=== PATIENT | male | born 1960 | race Two or more races ===

== ENCOUNTER 2018-04-10 11:22 | Emergency (ER) | payer OTHER ==
[2018-04-10 11:31] VITALS: BP 160/95
--- NOTE | 2018-04-10 12:28 | EDPHY ---
H & P Stated Complaint: sent from left finger lac Time Seen by Provider: 04/10/18 12:28 HPI/ROS: HPI: This is a 57-year-old male who presents with Chief Complaint: sent from left finger lac Location: Left index finger Quality: Laceration Duration: 1-3 hours prior to arrival Signs and Symptoms: No bleeding, no radiation, no numbness, no weakness, no tingling, no incontinence, + decreased range of motion, no swelling, no pain, no fever Timing: Acute Severity: Moderate to severe Context: Patient is right-hand dominant, used his knife to cut through the dry while at work as he works as a construction electrician and accidentally sliced the volar aspect at the PIP joint of his left index finger. He reports that he immediately felt pain and it started to bleed but he became most concerned as he had no extension ability in the area. Reports tetanus is current. He is to be an ex [employer] member. Patient reports that he has sensation at the tip of his finger. He urgently went to urgent care who sent him here for further evaluation.. Modifying Factors: Direct pressure Comment: ROS: see HPI Constitutional: No fever, no chills, no weight loss Eyes: No blurred vision Respiratory: No shortness of breath, no cough Cardiovascular: No chest pain Gastrointestinal: No nausea, no vomiting no diarrhea Genitourinary: No dysuria Extremities: No myalgias Neurologic: No weakness, no numbness Skin: No rashes Hematologic: No bruising, no bleeding MEDICAL/SURGICAL/SOCIAL HISTORY: Medical history: Generally healthy. Does not take any regular medications. Surgical history: Denies Social history: Employed. CONSTITUTIONAL: Polite and cooperative adult male, awake and alert, no obvious distress HEENT: Atraumatic and normocephalic. EXTREMITIES: 2/2 pulses, strength 5/5, left index finger PIP joint 1 inch horizontal laceration, deep; patient permanently flex with no extensor ability. good light touch sensation. no deformities, no clubbing, no cyanosis or edema. NEUROLOGICAL: no focal neuro deficits. GCS 15. Light touch sensation intact. SKIN: Warm and dry, no erythema. no rash. Good capillary refill. Source: Patient Exam Limitations: No limitations - Personal History Current Tetanus/Diphtheria Vaccine: Yes Current Tetanus Diphtheria and Acellular Pertussis (TDAP): Yes Tetanus Vaccine Date: 2018 - Medical/Surgical History Hx Asthma: No Hx Chronic Respiratory Disease: No Hx Diabetes: No Hx Cardiac Disease: No Hx Renal Disease: No Hx Cirrhosis: No Hx Alcoholism: No Hx HIV/AIDS: No Hx Splenectomy or Spleen Trauma: No Other PMH: none reported - Social History Smoking Status: Never smoked Constitutional: Initial Vital Signs Temperature (C) 36.6 C 04/10/18 11:29 Heart Rate 63 04/10/18 11:29 Respiratory Rate 18 04/10/18 11:29 Blood Pressure 160/95 H 04/10/18 11:29 O2 Sat (%) 96 04/10/18 11:29 O2 Delivery Mode Room Air Allergies/Adverse Reactions: No Known Allergies Allergy (Unverified 04/10/18 11:28) Home Medications: Medication Instructions Recorded NK [No Known Home Meds] 04/10/18 Medical Decision Making Procedures: Procedure: Laceration repair. Verbal consent was obtained from the patient. The deep, complex, 1 in, horizontal laceration on the PIP joint of the left index finger was anesthetized in the usual fashion using a digital block of 6 mL of 1% lidocaine without epinephrine. The wound was irrigated, draped and explored to its base with a gloved finger. There were no deep structures involved. No tendon injury was identified. The wound was repaired with #6, 5 0 Prolene. The procedure was performed by myself. Procedure: Splint placement. A left aluminum finger splint was applied by the Emergency Room mobile battery technician. After application of the splint I returned and re-examined the patient. The splint was adequately immobilizing the joint and distal to the splint the patient's circulation and sensation was intact. ED Course/Re-evaluation: Tetanus is up-to-date. Tendon injury with no extensor ability ED decision to consult Hand. Spoke with Dr. Mary Beth Pryor who reports the close the laceration and splint and patient will be seen in the next 1-2 days in her office. Laceration repaired; Xeroform and finger splint applied. This patient was seen under the supervision of my secondary supervising physician. I evaluated care for this patient independently. Discussed this patient with Dr. Senior. Differential Diagnosis: Differential diagnosis includes but is not limited to fracture, tendon injury, nerve injury Departure - Departure Disposition: Home, Routine, Self-Care Clinical Impression: Laceration of left index finger with tendon involvement Qualifiers: Encounter type: initial encounter Qualified Code(s): S61.211A - Laceration without foreign body of left index finger without damage to nail, initial encounter Condition: Good Instructions: Splint Care (ED), Finger Laceration (ED), Tendon Laceration (ED) Additional Instructions: Keep the splint dry and in place until seen by Orthopedics. Take Tylenol 650 mg every 4 hours and/or Ibuprofen 600 mg every 8 hours with food as needed for pain. Call Orthopedics Hand surgery tomorrow morning for a follow-up appointment in 1- 3 days. You will require surgery for tendon repair. Return to the ER immediately if you experience new or worsening pain, discoloration, numbness, tingling, or any other symptoms that concern you. Follow-Up: Please follow-up as noted above. Follow-up sooner if your condition worsens or if you develop any new problems. Call as soon as possible for an appointment. Be clear when you call for an appointment that this is an Emergency Department follow-up. Contact the Emergency Department if you have trouble arranging follow-up care. Our referrals are not based on your insurance network. When time allows, contact your insurance carrier to verify the referral physician is in your plan. If not, get a referral for an in-computer networker. Referrals: Mary Beth Pryor MD [Medical Doctor] - As per Instructions
== END 2018-04-10 15:00 | disposition home or self-care (01) ==
PROC: 0HQGXZZ Repair Left Hand Skin, External Approach (ICD-10-PCS; principal; 2018-04-10)
DX: S61.211A Laceration without foreign body of left index finger without damage to nail, initial encounter (principal); W26.0XXA Contact with knife, initial encounter; Y99.0 Civilian activity done for income or pay; Y93.89 Activity, other specified